=== PATIENT | female | born 1950 | race American Indian/Alaskan Native ===

== ENCOUNTER 2016-07-17 12:58 | Emergency (ER) | payer OTHER ==
--- NOTE | 2016-07-17 14:23 | Emergency Department Report ---
Chief Complaint: Chest Pain Stated Complaint: CHEST TIGHTNESS/PAIN DOWN ARM Time Seen by Provider: 07/17/16 14:17 - HPI History of Present Illness: 66-year-old female presents today with pain and numbness of her left arm and pain in her neck 6 days. Also complaining of midline chest pain that comes and goes. Denies nausea, vomiting, shortness of breath, abdominal pain. - ROS Review of Systems: Per HPI - Exam Vital Signs: Vital Signs 07/17/16 13:07 Temperature 97.8 F Pulse Rate 64 Respiratory 18 Rate Blood Pressure 183/86 O2 Sat by Pulse 100 Oximetry Physical Exam: General: 66-year-old female in no acute distress. Well-developed, well- nourished. CV: Regular rate and rhythm. Lungs: Clear to auscultation bilaterally. MSE screening note: Focused history and physical exam performed. Due to findings the following was ordered: ED Disposition for MSE Condition: Stable
--- NOTE | 2016-07-17 14:49 | XRay Report ---
Chest 2 views: History: Chest pain. Findings: Normal cardiomediastinal silhouette. Trachea is midline. No consolidation, pneumothorax or pleural effusion. Impression: No acute cardiopulmonary findings.
[2016-07-17 15:47] LABS: Basophils % (Auto) 0.5 % (0.0-1.8); Hematocrit 38.5 % (30.3-42.9); Hemoglobin 12.5 gm/dl (10.1-14.3); Mean Corpuscular HGB Conc 32 % (30-34); Mean Corpuscular Hemoglobin 27 pg (28-32); Mean Corpuscular Volume 83 fl (79-97); Platelet Count 211 K/mm3 (140-440); Red Blood Count 4.64 M/mm3 (3.65-5.03); White Blood Count 4.7 K/mm3 (4.5-11.0)
[2016-07-18 01:43] VITALS: BP 192/76
--- NOTE | 2016-07-18 13:41 | Cat Scan Report ---
FINAL REPORT PROCEDURE: CT ANGIO CHEST TECHNIQUE: Computerized axial tomographic angiography of the chest and pulmonary arteries was performed after the IV injection of iodinated nonionic contrast. The image data was postprocessed using maximum intensity projection (MIP) and 2-dimensional multiplanar reformatted (MPR) techniques. The examination is specifically tailored to the evaluation of the pulmonary arteries per clinical request. HISTORY: Shortness of breath and chest pain. Short of breath 786.09, chest pain 786.50, COMPARISON: No prior studies are available for comparison. FINDINGS: Heart and pericardium: Normal. Thoracic aorta: Normal. Pulmonary vasculature: Normal. No pulmonary emboli. Lymph nodes: There is no CT evidence of distinctly enlarged mediastinal lymph nodes. However there is moderate dilation of the entire esophagus which is filled with fluid.. Lungs: There is mild dependent atelectasis in the posterior lower lungs. The lungs are clear otherwise.. Pleural space: No effusion, thickening, or pneumothorax. Musculoskeletal structures: Mild bony degenerative change. Upper abdominal structures: Heterogenous spleen is likely due to contrast flux.. IMPRESSION: 1. There is no CT evidence of pulmonary embolus. 2. There is no CT evidence of thoracic aortic dissection. 3. Mild dependent atelectasis in the posterior mid and lower lungs. 4. There is moderate dilation of the entire esophagus which contains fluid. The significance of this is uncertain. Prior esophageal pull-through procedure or primary esophageal disease is not excluded. If there is any clinical concern for an esophageal abnormality as a cause for the patient's symptoms then an esophagram or endoscopy recommended only if clinically indicated.
[2016-07-18 16:02] LABS: Creatine Kinase MB 1.1 ng/mL (0.0-4.0)
[2016-07-18 16:04] LABS: Alanine Aminotransferase 25 units/L (7-56); Albumin 3.8 g/dL (3.9-5); Albumin/Globulin Ratio 1.4 %; Alkaline Phosphatase 72 units/L (35-129); BUN/Creatinine Ratio 11.25; Bilirubin,Direct < 0.2 mg/dL (0-0.2); Bilirubin,Total 0.5 mg/dL (0.1-1.2); Blood Urea Nitrogen 9 mg/dL (7-17); Calcium 8.9 mg/dL (8.4-10.2); Carbon Dioxide 26 mmol/L (22-30); Chloride 103.4 mmol/L (98-107); Creatine Kinase 73 units/L (30-135); Glucose 120 mg/dL (65-100); Lipase 18 units/L (13-60); Potassium 3.9 mmol/L (3.6-5.0); Sodium 141 mmol/L (137-145); Total Protein 6.5 g/dL (6.3-8.2)
[2016-07-18 16:05] LABS: Anion Gap 16 mmol/L; Bilirubin,Indirect 0.3 mg/dL
[2016-07-18 16:06] LABS: Alanine Aminotransferase 24 units/L (7-56); Anion Gap 14 mmol/L; BUN/Creatinine Ratio 11.25; Bilirubin,Total 0.5 mg/dL (0.1-1.2); Blood Urea Nitrogen 9 mg/dL (7-17); Calcium 8.8 mg/dL (8.4-10.2); Carbon Dioxide 28 mmol/L (22-30); Glucose 121 mg/dL (65-100); Potassium 3.8 mmol/L (3.6-5.0); Sodium 140 mmol/L (137-145)
[2016-07-18 16:07] LABS: Albumin 3.7 g/dL (3.9-5); Albumin/Globulin Ratio 1.2 %; Alkaline Phosphatase 70 units/L (35-129); Total Protein 6.7 g/dL (6.3-8.2)
--- NOTE | 2016-07-19 07:42 | Vascular Lab Report ---
LOWER EXTREMITY VENOUS DUPLEX: REASON FOR EXAM: Swelling. COMMENTS ON THE RIGHT: All veins visualized are freely compressible without evidence of internal echogenicity. Flow is spontaneous and phasic throughout. COMMENTS ON THE LEFT: All veins visualized are freely compressible without evidence of internal echogenicity. Flow is spontaneous and phasic throughout. IMPRESSION: No evidence of acute or chronic deep venous thrombosis in either lower extremity.
== END 2016-07-18 08:18 | disposition home or self-care (01) ==
LOC: ED 12:58
DX: M79.602 Pain in left arm (principal); R20.0 Anesthesia of skin; M54.2 Cervicalgia
CPT/HCPCS: 36415; 71020; 71275; 80048; 80053; 80074; 82550; 82553; 83690; 83880; 84484; 85025; 85379; 93005; 93010; 93970; 99284; Q9967

== ENCOUNTER 2018-02-28 18:12 | Emergency (ER) | payer OTHER ==
[2018-02-28] MEDS ORDERED: MOTRIN PO ONE (22:56)
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
[2018-02-28 23:34] VITALS: BP 140/70
== END 2018-02-28 23:34 | disposition home or self-care (01) ==
LOC: ED 18:12
DX: S16.1XXA Strain of muscle, fascia and tendon at neck level, initial encounter (principal); I10 Essential (primary) hypertension; E11.9 Type 2 diabetes mellitus without complications; Z90.710 Acquired absence of both cervix and uterus; Z88.5 Allergy status to narcotic agent; V89.2XXA Person injured in unspecified motor-vehicle accident, traffic, initial encounter; Y93.89 Activity, other specified; Y92.89 Other specified places as the place of occurrence of the external cause; Y99.8 Other external cause status
CPT/HCPCS: 99282

== ENCOUNTER 2022-02-23 10:38 | Inpatient (IN) | payer MEDICARE ==
[2022-02-23] MEDS ORDERED: ONDANSETRON 4 MG/2 ML INJ IV ONE (12:00)
[2022-02-23] MEDS ORDERED: fentaNYL 100 MCG/2 ML INJ IV ONE (12:00)
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
[2022-02-23 12:22] LABS: Basophils % (Auto) 0.4 % (0.0-1.8); Eosinophils % (Auto) 0.1 % (0.0-4.3); Hematocrit 33.7 % (30.3-42.9); Hemoglobin 11.2 gm/dl (10.1-14.3); Lymphocytes # (Auto) 1.2 K/mm3 (1.2-5.4); Lymphocytes % (Auto) 25.8 % (13.4-35.0); Mean Corpuscular HGB Conc 33 % (30-34); Mean Corpuscular Volume 86 fl (79-97); Monocytes # (Auto) 0.3 K/mm3 (0.0-0.8); Monocytes % (Auto) 6.1 % (0.0-7.3); Platelet Count 214 K/mm3 (140-440); Red Blood Count 3.91 M/mm3 (3.65-5.03); Red Cell Distribution Width 14.5 % (13.2-15.2)
[2022-02-23 12:51] LABS: BUN/Creatinine Ratio 14; Blood Urea Nitrogen 14 mg/dL (7-17); Calcium 9.2 mg/dL (8.4-10.2); Creatine Kinase MB 1.6 ng/mL (0.0-4.0); Hemolysis Index 30
--- NOTE | 2022-02-23 12:51 | Cat Scan Report ---
CT HEAD WITHOUT CONTRAST INDICATION / CLINICAL INFORMATION: Syncope, pain after fall. TECHNIQUE: Axial imaging performed from the skull apex through the skull base without the use of cont rast. Sagittal and coronal reformatted images. All CT scans at this location are performed using CT dose reduction for ALARA by means of automated exposure control. COMPARISON: None available. FINDINGS: CEREBRAL PARENCHYMA: No significant abnormality. No acute territorial infarct. HEMORRHAGE: None. EXTRA-AXIAL SPACES: Normal in size and morphology for the patient's age. VENTRICULAR SYSTEM: Normal in size and morphology for the patient's age. MIDLINE SHIFT OR HERNIATION: None. CEREBELLUM / BRAINSTEM: No significant abnormality. CALVARIUM: No significant abnormality. ORBITS: Normal as visualized. PARANASAL SINUSES / MASTOID AIR CELLS: Normal as visualized. SOFT TISSUES of HEAD: No significant abnormality. ADDITIONAL FINDINGS: None. IMPRESSION: No acute intracranial abnormality. CT CERVICAL SPINE WITHOUT CONTRAST INDICATION: Syncope, pain after fall. TECHNIQUE: Axial imaging performed through the cervical spine without the use of contrast. Sagittal and coronal reconstructed images were also reviewed. All CT scans at this location are performed us ing CT dose reduction for ALARA by means of automated exposure control. COMPARISON: None FINDINGS: Alignment: Spinal alignment is normal. Bones: There is no acute osseous abnormality. Minimal to mild discogenic DJD is identified at all l evels. The facet joints are unremarkable. Soft tissues: No acute or significant incidental soft tissue abnormality. IMPRESSION: No acute abnormality. Mild multilevel cervical spondylosis. Signer Name: Rolando Anton Jr, MD Signed: 02/23/2022 12:46 PM Workstation Name: [id number]
[2022-02-23 12:56] LABS: Free T4 (Free Thyroxine) 1.14 ng/dL (0.76-1.46)
--- NOTE | 2022-02-23 16:49 | Cat Scan Report ---
CTA CHEST WITH CONTRAST INDICATION / CLINICAL INFORMATION: Syncope. TECHNIQUE: Axial CT images were obtained through the chest after injection of 79 cc Omnipaque 350 IV contrast. 3 plane MIP and/or 3D reconstructions were produced. All CT scans at this location are perf ormed using CT dose reduction for ALARA by means of automated exposure control. COMPARISON: None available. FINDINGS: PULMONARY ARTERIES: No pulmonary emboli. THORACIC AORTA: No significant abnormality. HEART: No significant abnormality. CORONARY ARTERY CALCIFICATION: None. MEDIASTINUM / SHELTON: No significant abnormality. PLEURA: No pleural effusion. No pneumothorax. LUNGS: No acute air space or interstitial disease. ADDITIONAL FINDINGS: Patulous fluid-filled esophagus. UPPER ABDOMEN: No acute findings. SKELETAL STRUCTURES: Scattered degeneration. IMPRESSION: 1. No CT evidence for pulmonary embolism. 2. No acute findings. 3. Patulous fluid-filled esophagus. Signer Name: Sam Anderson DO Signed: 02/23/2022 4:45 PM Workstation Name: [id number]
[2022-02-23] MEDS ORDERED: ASPIRIN 325 MG TAB PO ONE (16:56)
[2022-02-23] MEDS ORDERED: MORPHINE 2 MG/1 ML INJ IV PRN (16:57)
[2022-02-23] MEDS ORDERED: ONDANSETRON 4 MG/2 ML INJ IV PRN ×2 (16:57→21:30)
[2022-02-23] MEDS ORDERED: ACETAMINOPHEN 325 MG TAB PO PRN ×2 (16:57→21:30)
[2022-02-23] MEDS ORDERED: SODIUM CHLORIDE 0.9% 1000 ML 1,000 ML IV SCH (21:30)
[2022-02-23] MEDS ORDERED: METOCLOPRAMIDE 10 MG/2 ML INJ IV PRN (21:30)
[2022-02-23] MEDS ORDERED: oxyCODONE /ACETAMINOPHEN 5-325MG TAB PO PRN (21:30)
--- NOTE | 2022-02-23 21:34 | History and Physical Report ---
History of Present Illness Date of examination: 02/23/22 Date of admission: 02/23/22 16:57 Chief complaint: Passed out this am History of present illness: The patient is a 72-year-old female present with a chief complaint of syncope. Patient is a resident at [facility] states she remembers sitting down to eat breakfast and then her next memory is hitting the floor. The patient states she had passed out causing her to fall from her chair but was awakened upon hitting the floor. Patient states she attempted to get up but fell back down. Patient denies any preceding chest pain, shortness of breath or palpitations. Patient now complains of a headache and neck pain from her fall. Patient currently gives her pain a score of 9/10. Patient denies nausea or vomiting - Past Medical History --Hypertension: Yes --Diabetes: Yes - Surgical History --Additional Surgical History: hysterectomy. fundoplication - Family History --Family history: no significant - Social History --Smoking Status: Never Smoker --Substance Use Type: Alcohol - Medications --Home Medications: Home Medications Medication Instructions Recorded Confirmed Last Taken Type Ibuprofen [Motrin 600 MG tab] 600 mg PO Q8H #30 tablet 02/28/18 Unknown Rx Review of Systems ROS: Stated complaint: FALL/HEAD PAIN Other details as noted in HPI Constitutional: no symptoms reported Eyes: denies: eye pain ENT: denies: throat pain Respiratory: denies: shortness of breath Cardiovascular: denies: chest pain, palpitations Endocrine: no symptoms reported Gastrointestinal: denies: abdominal pain, nausea, vomiting Genitourinary: denies: dysuria Musculoskeletal: arthralgia Neurological: headache Medications and Allergies Allergies Allergy/AdvReac Type Severity Reaction Status Date / Time codeine Allergy Shortness Verified 02/23/22 11:32 of Breath Home Medications Medication Instructions Recorded Confirmed Last Taken Type Ibuprofen [Motrin 600 MG tab] 600 mg PO Q8H #30 tablet 02/28/18 02/24/22 Unknown Rx Active Meds: Active Medications Acetaminophen (Acetaminophen 325 Mg Tab) 650 mg PO Q4H PRN PRN Reason: Pain MILD(1-3)/Fever >100.5/GAINES Morphine Sulfate (Morphine 2 Mg/1 Ml Inj) 2 mg IV Q4H PRN PRN Reason: Pain, Moderate (4-6) Ondansetron HCl (Ondansetron 4 Mg/2 Ml Inj) 4 mg IV Q8H PRN PRN Reason: Nausea And Vomiting Sodium Chloride (Sodium Chloride 0.9% 10 Ml Flush Syringe) 10 ml IV BID MURPHY Sodium Chloride (Sodium Chloride 0.9% 10 Ml Flush Syringe) 10 ml IV PRN PRN PRN Reason: LINE FLUSH Exam - Constitutional Vitals: Temp Pulse Resp BP Pulse Ox 97.9 F 58 L 14 138/57 100 02/23/22 10:38 02/23/22 17:34 02/23/22 17:34 02/23/22 17:34 02/23/22 17:34 General appearance: Present: no acute distress, well-nourished - EENT Eyes: Present: PERRL ENT: hearing intact, clear oral mucosa - Neck Neck: Present: supple, normal ROM - Respiratory Respiratory effort: normal Respiratory: bilateral: CTA - Cardiovascular Heart rate: 78 Rhythm: regular Heart Sounds: Present: S1 & S2. Absent: rub, click - Extremities Extremities: pulses symmetrical, No edema Peripheral Pulses: within normal limits - Abdominal General gastrointestinal: Present: soft, non-tender, non-distended, normal bowel sounds Female genitourinary: Present: normal - Integumentary Integumentary: Present: clear, warm, dry - Musculoskeletal Musculoskeletal: gait normal, strength equal bilaterally - Psychiatric Psychiatric: appropriate mood/affect, intact judgment & insight - Neurologic Neurologic: CNII-XII intact, moves all extremities HEART Score - HEART Score History: Moderately suspicious Age: > 65 Risk factors: 1-2 risk factors Troponin: Troponin T < 0.010 ng/mL (0.00-0.029) 02/23/22 12:19 Troponin: < normal limit - Critical Actions Critical Actions: 0-3 pts:0.9-1.7%risk of adverse cardiac event.Candidate for discharge Results - Labs CBC & Chem 7: 02/23/22 12:19 02/23/22 12:19 Labs: Laboratory Last Values WBC 4.8 K/mm3 (4.5-11.0) 02/23/22 12:19 RBC 3.91 M/mm3 (3.65-5.03) 02/23/22 12:19 Hgb 11.2 gm/dl (10.1-14.3) 02/23/22 12:19 Hct 33.7 % (30.3-42.9) 02/23/22 12:19 MCV 86 fl (79-97) 02/23/22 12:19 MCH 29 pg (28-32) 02/23/22 12:19 MCHC 33 % (30-34) 02/23/22 12:19 RDW 14.5 % (13.2-15.2) 02/23/22 12:19 Plt Count 214 K/mm3 (140-440) 02/23/22 12:19 Lymph % (Auto) 25.8 % (13.4-35.0) 02/23/22 12:19 [place] % (Auto) 6.1 % (0.0-7.3) 02/23/22 12:19 Eos % (Auto) 0.1 % (0.0-4.3) 02/23/22 12:19 Baso % (Auto) 0.4 % (0.0-1.8) 02/23/22 12:19 Lymph # (Auto) 1.2 K/mm3 (1.2-5.4) 02/23/22 12:19 [place] # (Auto) 0.3 K/mm3 (0.0-0.8) 02/23/22 12:19 Eos # (Auto) 0.0 K/mm3 (0.0-0.4) 02/23/22 12:19 Baso # (Auto) 0.0 K/mm3 (0.0-0.1) 02/23/22 12:19 Seg Neutrophils % 67.6 % (40.0-70.0) 02/23/22 12:19 Seg Neutrophils # 3.3 K/mm3 (1.8-7.7) 02/23/22 12:19 D-Dimer 293.51 ng/mlDDU (0-234) H 02/23/22 12:19 Sodium 138 mmol/L (137-145) 02/23/22 12:19 Potassium 4.3 mmol/L (3.6-5.0) 02/23/22 12:19 Chloride 102.3 mmol/L (98-107) 02/23/22 12:19 Carbon Dioxide 28 mmol/L (22-30) 02/23/22 12:19 Anion Gap 12 mmol/L 02/23/22 12:19 BUN 14 mg/dL (7-17) 02/23/22 12:19 Creatinine 1.0 mg/dL (0.6-1.2) 02/23/22 12:19 Estimated GFR > 60 ml/min 02/23/22 12:19 BUN/Creatinine Ratio 14 % 02/23/22 12:19 Glucose 160 mg/dL (65-100) H 02/23/22 12:19 Calcium 9.2 mg/dL (8.4-10.2) 02/23/22 12:19 Magnesium 1.70 mg/dL (1.7-2.3) 02/23/22 12:19 Total Creatine Kinase 80 units/L (30-135) 02/23/22 12:19 CK-MB (CK-2) 1.6 ng/mL (0.0-4.0) 02/23/22 12:19 CK-MB (CK-2) Rel Index 2.0 (0-4) 02/23/22 12:19 Troponin T < 0.010 ng/mL (0.00-0.029) 02/23/22 12:19 TSH 1.680 mlU/mL (0.270-4.200) 02/23/22 11:59 Free T4 1.14 ng/dL (0.76-1.46) 02/23/22 11:59 Short CBC 02/23/22 Range/Units 12:19 WBC 4.8 (4.5-11.0) K/mm3 Hgb 11.2 (10.1-14.3) gm/dl Hct 33.7 (30.3-42.9) % Plt Count 214 (140-440) K/mm3 BMP 02/23/22 12:19 Sodium 138 Potassium 4.3 Chloride 102.3 Carbon Dioxide 28 BUN 14 Creatinine 1.0 Glucose 160 H Calcium 9.2 Cardiac Enzymes 02/23/22 02/23/22 02/23/22 Range/Units 12:19 12:19 21:56 Total Creatine Kinase 80 (30-135) units/L CK-MB (CK-2) 1.6 (0.0-4.0) ng/mL Troponin T < 0.010 < 0.010 (0.00-0.029) ng/mL - Imaging and Cardiology EKG: report reviewed (Normal sinus rhythm no acute ST-T wave changes) Imaging and Cardiology: CT head No acute findings Cervical spine CT No acute findings Chest CTA No CT evidence for pulmonary embolism No acute findings At risk fluid-filled esophagus Assessment and Plan Advance Directives: Yes (Full code) VTE prophylaxis?: Chemical Plan of care discussed with patient/family: Yes - Patient Problems (1) Syncope and collapse Current Visit: Yes Status: Acute Plan to address problem: Syncope and collapse at the assisted living facility No precipitating factor Looks young compared to her age of 72 Comfortable in bed during my exam Giving a good history No palpitations First episode Work-up for syncope including echocardiogram and carotid duplex scan Possible discharge of cardiogram and echocardiogram and carotid duplex scan was normal Troponins are negative No need for Lexiscan (2) Hypertension Current Visit: Yes Status: Chronic Qualifiers: Hypertension type: primary hypertension Qualified Code(s): I10 - Essential (primary) hypertension Plan to address problem: Continue antihypertensives and adjust medications (3) T2DM (type 2 diabetes mellitus) Current Visit: Yes Status: Chronic Qualifiers: Diabetes mellitus usp insulin use: unspecified usp insulin use status Plan to address problem: Coverage for now (4) DVT prophylaxis Current Visit: Yes Status: Acute (5) DVT prophylaxis Current Visit: Yes Status: Acute Plan to address problem: On heparin and GI prophylaxis (6) Advance care planning Current Visit: Yes Status: Acute Plan to address problem: Disease education conducted, care plan discussed, persistent prognosis di scussed. Patient is full code. Patient acknowledges understanding of the care plan. +30 minutes.
[2022-02-23] MEDS: FAMOTIDINE 20 MG TAB PO SCH (22:18)
[2022-02-24] MEDS: FAMOTIDINE 20 MG TAB PO SCH ×2 (10:19→22:18)
--- NOTE | 2022-02-24 11:28 | Progress Note ---
Assessment and Plan Assessment and plan: Advance Directives: Yes (Full code) VTE prophylaxis?: Chemical Plan of care discussed with patient/family: Yes - Patient Problems -- Syncope and collapse Fall precautions, patient did not have any new syncopal episodes Syncope work-up is negative Ambulate as tolerated, if patient has any weakness or dizziness Consider physical therapy evaluation -- Hypertension Continue antihypertensives and adjust medications --T2DM (type 2 diabetes mellitus) Coverage for now -- DVT prophylaxis On heparin and GI prophylaxis --Advance care planning Disease education conducted, care plan discussed, persistent prognosis dis cussed. Patient is full code. Patient acknowledges understanding of the care plan. +30 minutes. Closely monitor the patient and adjust management as needed Plan of care reviewed with the patient and her nurse History Interval history: I have seen and examined the patient at the bedside Patient's chart and medications reviewed Admitted with syncopal episode, work-up is in progress Echo pending , No new episodes of syncope Orthostats reviewed Hospitalist Physical - Constitutional Vitals: Temp Pulse Resp BP Pulse Ox 98.4 F 52 L 16 154/72 99 02/24/22 08:19 02/24/22 08:19 02/24/22 04:07 02/24/22 08:19 02/24/22 08:19 General appearance: Present: no acute distress, well-nourished - EENT Eyes: Present: PERRL, EOM intact - Neck Neck: Present: supple, normal ROM - Respiratory Respiratory effort: normal Respiratory: bilateral: diminished, negative: rales, rhonchi, wheezing - Cardiovascular Rhythm: regular Heart Sounds: Present: S1 & S2 - Extremities Extremities: no ischemia, No edema - Abdominal General gastrointestinal: soft, non-tender, non-distended, normal bowel sounds - Integumentary Integumentary: Present: clear, warm - Psychiatric Psychiatric: appropriate mood/affect, cooperative - Neurologic Neurologic: CNII-XII intact, moves all extremities HEART Score - HEART Score Age: > 65 Risk factors: 1-2 risk factors Troponin: Troponin T < 0.010 ng/mL (0.00-0.029) 02/23/22 21:56 Troponin: < normal limit - Critical Actions Critical Actions: 0-3 pts:0.9-1.7%risk of adverse cardiac event.Candidate for discharge Results - Labs CBC & Chem 7: 02/24/22 10:23 02/24/22 10:23 Labs: Laboratory Last Values WBC 4.8 K/mm3 (4.5-11.0) 02/23/22 12:19 RBC 3.91 M/mm3 (3.65-5.03) 02/23/22 12:19 Hgb 11.2 gm/dl (10.1-14.3) 02/23/22 12:19 Hct 33.7 % (30.3-42.9) 02/23/22 12:19 MCV 86 fl (79-97) 02/23/22 12:19 MCH 29 pg (28-32) 02/23/22 12:19 MCHC 33 % (30-34) 02/23/22 12:19 RDW 14.5 % (13.2-15.2) 02/23/22 12:19 Plt Count 214 K/mm3 (140-440) 02/23/22 12:19 Lymph % (Auto) 25.8 % (13.4-35.0) 02/23/22 12:19 [place] % (Auto) 6.1 % (0.0-7.3) 02/23/22 12:19 Eos % (Auto) 0.1 % (0.0-4.3) 02/23/22 12:19 Baso % (Auto) 0.4 % (0.0-1.8) 02/23/22 12:19 Lymph # (Auto) 1.2 K/mm3 (1.2-5.4) 02/23/22 12:19 [place] # (Auto) 0.3 K/mm3 (0.0-0.8) 02/23/22 12:19 Eos # (Auto) 0.0 K/mm3 (0.0-0.4) 02/23/22 12:19 Baso # (Auto) 0.0 K/mm3 (0.0-0.1) 02/23/22 12:19 Seg Neutrophils % 67.6 % (40.0-70.0) 02/23/22 12:19 Seg Neutrophils # 3.3 K/mm3 (1.8-7.7) 02/23/22 12:19 D-Dimer 293.51 ng/mlDDU (0-234) H 02/23/22 12:19 Sodium 138 mmol/L (137-145) 02/23/22 12:19 Potassium 4.3 mmol/L (3.6-5.0) 02/23/22 12:19 Chloride 102.3 mmol/L (98-107) 02/23/22 12:19 Carbon Dioxide 28 mmol/L (22-30) 02/23/22 12:19 Anion Gap 12 mmol/L 02/23/22 12:19 BUN 14 mg/dL (7-17) 02/23/22 12:19 Creatinine 1.0 mg/dL (0.6-1.2) 02/23/22 12:19 Estimated GFR > 60 ml/min 02/23/22 12:19 BUN/Creatinine Ratio 14 % 02/23/22 12:19 Glucose 160 mg/dL (65-100) H 02/23/22 12:19 Calcium 9.2 mg/dL (8.4-10.2) 02/23/22 12:19 Magnesium 1.70 mg/dL (1.7-2.3) 02/23/22 12:19 Total Creatine Kinase 80 units/L (30-135) 02/23/22 12:19 CK-MB (CK-2) 1.6 ng/mL (0.0-4.0) 02/23/22 12:19 CK-MB (CK-2) Rel Index 2.0 (0-4) 02/23/22 12:19 Troponin T < 0.010 ng/mL (0.00-0.029) 02/23/22 21:56 TSH 1.680 mlU/mL (0.270-4.200) 02/23/22 11:59 Free T4 1.14 ng/dL (0.76-1.46) 02/23/22 11:59 Jarvis/IV: Voiding Method Toilet Active Medications - Current Medications Current Medications: Generic Name Dose Route Start Last Admin Trade Name Freq PRN Reason Stop Dose Admin Acetaminophen 650 mg 02/23/22 21:30 Acetaminophen 325 Mg Tab PO Q4H PRN Pain MILD(1-3)/Fever >100.5/GAINES Famotidine 20 mg 02/23/22 22:00 02/24/22 10:19 Famotidine 20 Mg Tab PO 20 mg BID MURPHY Administration Sodium Chloride 1,000 mls @ 75 mls/hr 02/23/22 21:30 Nacl 0.9% 1000 Ml IV DIRECT MURPHY Metoclopramide HCl 10 mg 02/23/22 21:30 Metoclopramide 10 Mg/2 Ml Inj IV Q6H PRN Nausea And Vomiting Morphine Sulfate 2 mg 02/23/22 16:57 Morphine 2 Mg/1 Ml Inj IV Q4H PRN Pain, Moderate (4-6) Ondansetron HCl 4 mg 02/23/22 21:30 Ondansetron 4 Mg/2 Ml Inj IV Q8H PRN Nausea And Vomiting Oxycodone/Acetaminophen 1 tab 02/23/22 21:30 Oxycodone /Acetaminophen 5-325mg Tab PO Q6H PRN Pain, Moderate (4-6) Sodium Chloride 10 ml 02/23/22 22:00 02/24/22 10:19 Sodium Chloride 0.9% 10 Ml Flush Syringe IV 10 ml BID MURPHY Administration Sodium Chloride 10 ml 02/23/22 21:30 Sodium Chloride 0.9% 10 Ml Flush Syringe IV PRN PRN LINE FLUSH Nutrition/Malnutrition Assess - Dietary Evaluation Nutrition/Malnutrition Findings: Nutrition Notes Start: 02/24/22 09:43 Freq: Status: Active Protocol: Document 02/24/22 09:43 NATHAN (Rec: 02/24/22 09:45 NATHAN [id number]) Nutrition Notes Need for Assessment generated from: managing director atlas Initial or Follow up Brief Note Current Diagnosis Diabetes,Hypertension Other Pertinent Diagnosis Syncope and collapse Current Diet Cardiac Labs/Tests Reviewed Pertinent Medications NS at 75ml/hr Height 5 ft 4 in Weight 68 kg [place] Body Weight (kg) 54.54 BMI 25.7 Weight Status Appropriate Subjective/Other Information Pt screened for skin risk, however, Thomas score is unavailable. She is from an assisted living facility and is alert and oriented x 4. Burn Absent Trauma Absent Skin Integrity/Comment No skin breakdown reported Minimum of two criteria No Is patient on ventilator? No Is Patient Ambulatory and/or Out of Bed Yes REE-([place] Jeor-ambulatory/OOB) [ 3502.500 [id number]] Calculation Used for Recommendations [place] [facility] Additional Notes Pro needs 1-1.2g/k-82g/ day Fluid needs 1ml/kcal Nutrition Intervention Follow-Up By: 02/28/22 Additional Comments F/U: intakes
[2022-02-24 11:35] LABS: Basophils % (Auto) 1.3 % (0.0-1.8); Eosinophils % (Auto) 0.3 % (0.0-4.3); Hematocrit 33.5 % (30.3-42.9); Hemoglobin 11.1 gm/dl (10.1-14.3); Lymphocytes # (Auto) 1.5 K/mm3 (1.2-5.4); Lymphocytes % (Auto) 39.9 % (13.4-35.0); Mean Corpuscular HGB Conc 33 % (30-34); Mean Corpuscular Volume 86 fl (79-97); Monocytes # (Auto) 0.4 K/mm3 (0.0-0.8); Platelet Count 205 K/mm3 (140-440); Red Blood Count 3.91 M/mm3 (3.65-5.03); Red Cell Distribution Width 14.5 % (13.2-15.2)
[2022-02-24 11:41] LABS: Alanine Aminotransferase 12 units/L (7-56); BUN/Creatinine Ratio 17; Blood Urea Nitrogen 15 mg/dL (7-17); Calcium 9.3 mg/dL (8.4-10.2); Hemolysis Index 0
[2022-02-25] MEDS: FAMOTIDINE 20 MG TAB PO SCH (10:23)
[2022-02-25] MEDS ORDERED: CETIRIZINE 10 MG TAB PO SCH (12:00)
--- NOTE | 2022-02-25 13:30 | Discharge Summary ---
Providers - Providers Date of Admission: 02/23/22 16:57 Date of discharge: 02/25/22 Attending physician: TIMOTEO PARR Primary care physician: MERT MEJIA Hospitalization Condition: Fair Hospital course: (1) Syncope and collapse Current Visit: Yes Status: Acute Plan to address problem: Syncope and collapse at the assisted living facility No precipitating factor Looks young compared to her age of 72 Comfortable in bed during my exam Giving a good history No palpitations First episode Work-up for syncope including echocardiogram and carotid duplex scan Possible discharge of cardiogram and echocardiogram and carotid duplex scan was normal Troponins are negative No need for Lexiscan (2) Hypertension Current Visit: Yes Status: Chronic Qualifiers: Hypertension type: primary hypertension Qualified Code(s): I10 - Essential (primary) hypertension Plan to address problem: Continue antihypertensives and adjust medications (3) T2DM (type 2 diabetes mellitus) Current Visit: Yes Status: Chronic Qualifiers: Diabetes mellitus film reader insulin use: unspecified fci insulin use status Plan to address problem: Coverage for now (4) DVT prophylaxis Current Visit: Yes Status: Acute (5) DVT prophylaxis Current Visit: Yes Status: Acute Plan to address problem: On heparin and GI prophylaxis (6) Advance care planning Current Visit: Yes Status: Acute Plan to address problem: Disease education conducted, care plan discussed, persistent prognosis discussed. Patient is full code. Patient acknowledges understanding of the care plan. +30 minutes. Disposition: [facility] Final Discharge Diagnosis (Prints w/discharge instructions): Syncope and collapse/resolved no new episodes. Hypertension well-controlled. type 2 diabetes mellitus Core Measure Documentation - Palliative Care Palliative Care/ Comfort Measures: Not Applicable - Core Measures Any of the following diagnoses?: none Exam - Constitutional Vitals: Temp Pulse Resp BP Pulse Ox 98.6 F 53 L 20 162/78 98 02/25/22 07:57 02/25/22 11:00 02/25/22 04:33 02/25/22 07:57 02/25/22 11:00 General appearance: Present: no acute distress, well-nourished - EENT Eyes: Present: PERRL - Neck Neck: Present: supple, normal ROM - Respiratory Respiratory effort: normal Respiratory: bilateral: diminished, negative: rales, rhonchi, wheezing - Cardiovascular Rhythm: regular Heart Sounds: Present: S1 & S2 - Extremities Extremities: no ischemia, No edema - Abdominal General gastrointestinal: Present: soft, non-tender, non-distended, normal bowel sounds - Integumentary Integumentary: Present: clear, warm - Musculoskeletal Musculoskeletal: strength equal bilaterally - Psychiatric Psychiatric: appropriate mood/affect, cooperative - Neurologic Neurologic: moves all extremities Plan Activity: advance as tolerated, fall precautions Diet: diabetic Additional Instructions: If you have worsening symptoms contact MD or go to the nearest emergency room as needed. Fall precautions. If you continue to have recurrent symptoms need to see a private neurologist as needed Follow up with: MERT MEJIA MD [Primary Care Provider] - 3-5 Days
--- NOTE | 2022-02-25 13:48 | Electrocardiograph Report ---
[facility] Test Date: 2022-02-24 Test Time: 13:29:55 Pat Name: GOVIND RIVERA Department: Room: A484 1 Gender: F [employer] Specialist: STUART : 1950 Requested By: ARIA GOODE Order Number: [id number] Reading MD: John Flores Measurements Intervals [place] Rate: 61 P: 68 FL: 115 QRS: 43 QRSD: 85 T: 31 QT: 391 QTc: 394 Interpretive Statements Sinus rhythm with borderline short [place] interval. No previous ECG available for comparison Electronically Signed On 02-25-2022 13:48:34 EDT by John Flores
[2022-02-25 14:01] VITALS: BP 115/58
== END 2022-02-25 16:35 | DRG 74 ==
LOC: ED 10:38 → 4A 16:57
PROVIDERS: ADMIT Internal Medicine; ATTEND Internal Medicine
DX: G90.8 Other disorders of autonomic nervous system (principal); W07.XXXA Fall from chair, initial encounter; Y93.89 Activity, other specified; Y92.89 Other specified places as the place of occurrence of the external cause; Y99.8 Other external cause status; E11.9 Type 2 diabetes mellitus without complications; Z90.710 Acquired absence of both cervix and uterus; Z88.6 Allergy status to analgesic agent
CPT/HCPCS: 36415; 70450; 71275; 72125; 80048; 80053; 82550; 82553; 83735; 84439; 84443; 84484; 85025; 85379; 93005; 93306; 96374; 96375; 99285; G0378; C8929; J2405; J3010; Q9967